=== PATIENT | male | born 1990 | race Hispanic/Latino ===

== ENCOUNTER 2020-07-29 05:50 | Emergency (ER) | payer OTHER ==
[~2020-07-29] VITALS: Ht 172.7 cm; Wt 13.6 kg
[2020-07-29 06:07] VITALS: BP 132/54; TEMP 98.2
[2020-07-29 07:06] LABS: PLATELET COUNT 232 K/uL (142-355)
[2020-07-29 07:19] LABS: POTASSIUM 4.4 mmol/L (3.6-5.2)
== END 2020-07-29 09:23 | disposition home or self-care (01) ==
LOC: ED 05:50
PROVIDERS: Family Medicine
DX: R10.31 Right lower quadrant pain (principal); N40.0 Benign prostatic hyperplasia without lower urinary tract symptoms
CPT/HCPCS: 80053; 81000; 82150; 83690; 85027; 99283; Q9963

== ENCOUNTER 2020-10-11 08:49 | Emergency (ER) | payer OTHER ==
[~2020-10-11] VITALS: Ht 172.7 cm; Wt 147.4 kg
[2020-10-11 08:58] VITALS: TEMP 97.8
[2020-10-11 10:01] LABS: PLATELET COUNT 272 K/uL (142-355)
[2020-10-11 10:07] LABS: POTASSIUM 4.2 mmol/L (3.6-5.2)
[2020-10-11 10:45] VITALS: BP 169/68
== END 2020-10-11 10:45 | disposition home or self-care (01) ==
LOC: ED 08:49
PROVIDERS: Emergency Medicine Emergency Medical Services
DX: R19.7 Diarrhea, unspecified (principal); I10 Essential (primary) hypertension
CPT/HCPCS: 80048; 85027; 87015; 87045; 87324; 87328; 87329; 87449; 87899; 99283

== ENCOUNTER 2021-03-28 10:35 | Emergency (ER) | payer OTHER ==
[2021-04-05 12:04] LABS: POTASSIUM 4.2 mmol/L (3.6-5.2)
[2021-04-05 12:05] LABS: PLATELET COUNT 246 K/uL (142-355)
== END 2021-03-28 13:20 | disposition home or self-care (01) ==
LOC: ED 10:35
PROVIDERS: Emergency Medicine Emergency Medical Services
DX: J20.9 Acute bronchitis, unspecified (principal); K52.89 Other specified noninfective gastroenteritis and colitis; Z20.822 Contact with and (suspected) exposure to COVID-19; F17.210 Nicotine dependence, cigarettes, uncomplicated
CPT/HCPCS: 36415; 80048; 85027; 87502; 87635; 96360; 96361; 96375; 99284; U0003

== ENCOUNTER 2023-04-30 12:17 | Emergency (ER) | payer OTHER ==
[~2023-04-30] VITALS: Ht 172.7 cm; Wt 165.6 kg
[2023-04-30 12:20] VITALS: BP 181/105; TEMP 97.9
== END 2023-04-30 13:42 | disposition still patient (30) ==
LOC: ED 12:17
DX: S93.601A Unspecified sprain of right foot, initial encounter (principal); S86.011A Strain of right Achilles tendon, initial encounter; X58.XXXA Exposure to other specified factors, initial encounter
CPT/HCPCS: 99282